=== PATIENT | male | born 1955 | race African-American/Black ===

== ENCOUNTER 2022-03-07 15:10 | Observation (INO) | payer BC ==
[~2022-03-07 15:10] MED LIST: ISOVUE-370 76%-LOCM 1 ML ONE
[2022-03-07 16:16] LABS: #Eosinphils 0.1 thou/uL (0.0-0.7); #Lymphocytes 1.2 thou/uL (1.20-3.40); #Neutrophils 5.4 thou/uL (1.40-6.50); %Basophils 0.6 % (0.0-1.0); %Lymphocytes 15.2 % (21.0-51.0); %Monocytes 12.8 % (0.0-10.0); %Neutrophils 70.4 % (42.0-75.0); Mean Corpuscular HGB CONC 33.1 g/dL (32.0-36.0); Mean Corpuscular Hemoglobin 30.7 pg (27.0-31.0); Mean Corpuscular Volume 92.8 fL (78.0-98.0); Mean Platelet Volume 7.7 fL (7.4-10.4); Platelet Count 201 thou/uL (130-400); RBC Distribution Width 12.6 % (11.5-14.5); Red Blood Cell (RBC) Count 4.57 mill/uL (4.70-6.10); White Blood Cell (WBC) Count 7.6 thou/uL (4.8-10.8)
[2022-03-07] MEDS ORDERED: Ondansetron PF 4 MG/2 ML Vial ONE (16:42)
[2022-03-07] MEDS ORDERED: Morphine 4 MG/ML VIAL ONE (16:42)
[2022-03-07 16:49] LABS: ALT (SGPT) 19 U/L (8-55); AST (SGOT) 18 U/L (5-34); Albumin 4.4 g/dL (3.4-4.8); Alkaline Phosphatase 73 U/L (40-110); Anion Gap 18 mmol/L (10-20); BUN (Urea Nitrogen) 20 mg/dL (8.4-25.7); Bilirubin, Total 0.6 mg/dL (0.2-1.2); Calc. Creatinine Clearance 0 mL/min (70-130); Calcium 9.5 mg/dL (7.8-10.44); Carbon Dioxide 24 mmol/L (23-31); Chloride 102 mmol/L (98-107); Estimated GFR 40; Globulin 3.3 g/dL (2.4-3.5); Glucose 90 mg/dL (80-115); Lipase 10 U/L (8-78); Protein, Total 7.7 g/dL (5.8-8.1); Sodium 140 mmol/L (136-145)
[2022-03-07 18:24] LABS: Bacteria/HPF None Seen HPF (None Seen); Bilirubin Negative (Negative); Blood, Urine 2+ (Negative); Clarity Clear (Clear); Glucose, Urine (Dipstick) Normal (Negative); Ketone, Urine 20 mg/dL (Negative); Leukocyte Negative Leu/uL (Negative); Nitrite Negative (Negative); Protein, Urine (Dipstick) 30 mg/dL (Neg-Trace); RBC/HPF None Seen HPF (0-3); Specific Gravity, Urine 1.028 (1.002-1.036); Squamous Epithelial None Seen HPF (0-3); WBC/HPF None Seen HPF (0-3); pH, Urine 5.5 (5.0-9.0)
[2022-03-07] MEDS ORDERED: cefTRIAXone\\ROCEPHIN 1 GM VIAL ONE (19:08)
[2022-03-07] MEDS ORDERED: Morphine 2 MG/ML VIAL SLOW IVP PRN (19:45)
[2022-03-07] MEDS ORDERED: Zolpidem Tartrate 5 MG TAB PO PRN (19:46)
[2022-03-07] MEDS ORDERED: hydrALAZINE 20 MG/ML VIAL SLOW IVP PRN (19:46)
[2022-03-07] MEDS ORDERED: Bisacodyl 5 MG TAB PO PRN (19:46)
[2022-03-07] MEDS ORDERED: Ondansetron PF 4 MG/2 ML Vial IVP PRN (19:46)
[2022-03-07] MEDS ORDERED: Acetaminophen 325 MG TAB PO PRN (19:46)
[2022-03-07] MEDS ORDERED: HYDROcodone/Acetaminophen 5/325 mg Tablet PO PRN (19:46)
[2022-03-07 19:56] LABS: SARS-CoV-2 NAA Rapid Test Not Detected (NotDetected)
[2022-03-07] MEDS ORDERED: Tamsulosin HCl 0.4 MG CAP PO SCH (21:00)
[2022-03-07 23:01] VITALS: BMI 36.6
[2022-03-07] MEDS: hydrALAZINE 20 MG/ML VIAL SLOW IVP SCH ×2 (23:25→23:26)
[2022-03-07] MEDS: Sodium Chloride 0.9% 1,000 ML IV SCH (23:25)
[2022-03-08] MEDS: Sodium Chloride 0.9% 1,000 ML IV SCH (05:58)
[2022-03-08 06:52] LABS: #Eosinphils 0.1 thou/uL (0.0-0.7); #Lymphocytes 0.6 thou/uL (1.20-3.40); #Monocytes 0.6 thou/uL (0.11-0.59); #Neutrophils 4.3 thou/uL (1.40-6.50); %Basophils 0.1 % (0.0-1.0); %Lymphocytes 10.1 % (21.0-51.0); %Monocytes 11.3 % (0.0-10.0); %Neutrophils 77.4 % (42.0-75.0); Hemoglobin 12.7 g/dL (14.0-18.0); Mean Corpuscular Hemoglobin 29.8 pg (27.0-31.0); Mean Platelet Volume 7.6 fL (7.4-10.4); Platelet Count 169 thou/uL (130-400); RBC Distribution Width 12.5 % (11.5-14.5); Red Blood Cell (RBC) Count 4.28 mill/uL (4.70-6.10); White Blood Cell (WBC) Count 5.5 thou/uL (4.8-10.8)
[2022-03-08] MEDS ORDERED: Iopamidol 45 ML ONE (07:14)
[2022-03-08 07:15] LABS: ALT (SGPT) 15 U/L (8-55); AST (SGOT) 14 U/L (5-34); Albumin 3.8 g/dL (3.4-4.8); Alkaline Phosphatase 64 U/L (40-110); Anion Gap 14 mmol/L (10-20); BUN (Urea Nitrogen) 17 mg/dL (8.4-25.7); Bilirubin, Total 0.5 mg/dL (0.2-1.2); Calc. Creatinine Clearance 76 mL/min (70-130); Carbon Dioxide 22 mmol/L (23-31); Chloride 107 mmol/L (98-107); Estimated GFR 46; Globulin 2.7 g/dL (2.4-3.5); Glucose 92 mg/dL (80-115); Potassium 4.1 mmol/L (3.5-5.1); Protein, Total 6.5 g/dL (5.8-8.1); Sodium 139 mmol/L (136-145)
[2022-03-08] MEDS ORDERED: Famotidine/PF 20 mg/2ml Vial ONE (07:53)
[2022-03-08] MEDS ORDERED: Fentanyl 100 MCG/2 ML VIAL ONE (07:53)
[2022-03-08] MEDS ORDERED: Rocuronium Bromide 10 MG/ML (10ML VIAL) ONE (08:11)
[2022-03-08] MEDS ORDERED: Glycopyrrolate 0.2 MG/ML 5 ML SYRINGE ONE (08:11)
[2022-03-08] MEDS ORDERED: Succinylcholine 200 MG/10 ml SYRINGE FS ONE (08:11)
[2022-03-08] MEDS ORDERED: Ondansetron PF 4 MG/2 ML Vial ONE (08:11)
[2022-03-08] MEDS ORDERED: PHENYLEPHRINE-NS 100 MCG/ML 10 ML SYRINGE ONE (08:11)
[2022-03-08] MEDS ORDERED: Ketorolac Tromethamine 30 MG/ML VIAL ONE (08:11)
[2022-03-08] MEDS ORDERED: Lidocaine 1% PF 5 ML VIAL ONE (08:11)
[2022-03-08] MEDS ORDERED: PROPOFOL 200 MG/20 ML VIAL ONE (08:11)
[2022-03-08] MEDS ORDERED: Dexamethasone 20 MG/5 ML VIAL ONE (08:11)
[2022-03-08] MEDS ORDERED: Promethazine HCl 25 MG/ML VIAL IVPB PRN (08:30)
[2022-03-08] MEDS ORDERED: HYDROmorphone 2 MG/ML VIAL SLOW IVP PRN (08:30)
[2022-03-08] MEDS ORDERED: Meperidine HCl/PF 25 MG/ML VIAL SLOW IVP PRN (08:30)
[2022-03-08] MEDS ORDERED: Famotidine 20 MG TAB PO SCH (09:00)
[2022-03-08] MEDS ORDERED: diphenhydrAMINE 50 MG/ML VIAL IVP PRN (09:09)
[2022-03-08] MEDS ORDERED: Mag-Al 1200 mg/1200 mg/30 ML UDCUP PO PRN (09:09)
[2022-03-08 11:17] VITALS: BP 160/82; TEMP 98
[2022-03-08] MEDS ORDERED: Docusate 100 MG CAP PO SCH (21:00)
[2022-03-08] MEDS ORDERED: Trospium 20 MG TAB PO SCH (21:00)
[2022-03-09] MEDS ORDERED: Amlodipine 10 MG TAB PO SCH (09:00)
[2022-03-09] MEDS ORDERED: Enoxaparin Sodium 40 MG/0.4 ML SYRINGE SC SCH (09:00)
== END 2022-03-08 12:51 | disposition home or self-care (01) ==
LOC: ERS 15:10 → T4-A 19:46
PROVIDERS: ADMIT Internal Medicine; ATTEND Internal Medicine
PROC: 0T7D8ZZ Dilation of Urethra, Via Natural or Artificial Opening Endoscopic (ICD-10-PCS; principal; 2022-03-08)
PROC: 0T768ZZ Dilation of Right Ureter, Via Natural or Artificial Opening Endoscopic (ICD-10-PCS; 2022-03-08)
PROC: 0TC68ZZ Extirpation of Matter from Right Ureter, Via Natural or Artificial Opening Endoscopic (ICD-10-PCS; 2022-03-08)
PROC: 0T768DZ Dilation of Right Ureter with Intraluminal Device, Via Natural or Artificial Opening Endoscopic (ICD-10-PCS; 2022-03-08)
DX: N13.2 Hydronephrosis with renal and ureteral calculous obstruction (principal); N13.1 Hydronephrosis with ureteral stricture, not elsewhere classified; N35.812 Other bulbous urethral stricture, male; N17.9 Acute kidney failure, unspecified; N32.89 Other specified disorders of bladder; I10 Essential (primary) hypertension; E66.3 Overweight; Z68.36 Body mass index [BMI] 36.0-36.9, adult; Z85.46 Personal history of malignant neoplasm of prostate; Z79.899 Other long term (current) drug therapy; Z20.822 Contact with and (suspected) exposure to COVID-19
CPT/HCPCS: 36415; 74177; 74420; 80053; 81003; 81015; 82365; 83690; 85025; 87086; 88300; 93005; 96374; 96375; C2617; G0378; J0360; J0696; J1100; J1885; J1956; J2270; J2405; J2704; J3010; J7050; Q9966; Q9967; S0028; U0002

== ENCOUNTER 2022-06-17 12:40 | Outpatient (CLI) | payer BC | END 2022-06-17 12:41 | disposition home or self-care (01) | LOC: BICULT 12:40 | PROVIDERS: ATTEND Urology | DX: C61 Malignant neoplasm of prostate (principal); N20.0 Calculus of kidney; N30.40 Irradiation cystitis without hematuria; N28.1 Cyst of kidney, acquired; R93.421 Abnormal radiologic findings on diagnostic imaging of right kidney | CPT/HCPCS: 74018; 76770 ==

== ENCOUNTER 2022-12-07 12:37 | Outpatient (CLI) | payer MEDICARE | END 2022-12-07 12:38 | disposition home or self-care (01) | LOC: SCSCT 12:37 | PROVIDERS: ATTEND Urology | DX: N28.1 Cyst of kidney, acquired (principal); N30.40 Irradiation cystitis without hematuria; N20.0 Calculus of kidney; N35.916 Unspecified urethral stricture, male, overlapping sites; N13.5 Crossing vessel and stricture of ureter without hydronephrosis; R39.15 Urgency of urination; Z90.79 Acquired absence of other genital organ(s) | CPT/HCPCS: 74176 ==

== ENCOUNTER 2023-09-07 14:13 | Outpatient (CLI) | payer MEDICARE | END 2023-09-07 14:14 | disposition home or self-care (01) | LOC: BICULT 14:13 | PROVIDERS: ATTEND Urology | DX: C61 Malignant neoplasm of prostate (principal); N20.0 Calculus of kidney; N28.1 Cyst of kidney, acquired; N30.40 Irradiation cystitis without hematuria; N35.916 Unspecified urethral stricture, male, overlapping sites; N13.5 Crossing vessel and stricture of ureter without hydronephrosis; R79.89 Other specified abnormal findings of blood chemistry | CPT/HCPCS: 36415; 74018; 76770; 80048; 81001; 84153; 87086 ==

== ENCOUNTER 2024-07-14 08:34 | Outpatient (CLI) | payer MEDICARE | END 2024-07-14 08:35 | disposition home or self-care (01) | LOC: RAD 08:34 | PROVIDERS: ATTEND Urology | DX: N30.41 Irradiation cystitis with hematuria (principal) | CPT/HCPCS: 71046 ==